=== PATIENT | female | born 1960 | race Two or more races ===

== ENCOUNTER 2018-01-19 10:11 | Emergency (ER) | payer OTHER ==
[~2018-01-19] VITALS: Ht 154.9 cm; Wt 75.3 kg
[2018-01-19 10:14] VITALS: BP 139/82
[2018-01-19] MEDS ORDERED: LIDOCAINE-MPF 1%, 5ML ONE (10:54)
[2018-01-19] MEDS ORDERED: ALBUTEROL/IPRATROPIUM 2.5MG/0.5MG, 3 ML ONE (10:55)
[2018-01-19] MEDS ORDERED: LIDOCAINE-MPF 1%, 5ML INFIL ONE (11:00)
[2018-01-19] MEDS ORDERED: ALBUTEROL/IPRATROPIUM 2.5MG/0.5MG, 3 ML NPPB ONE (11:00)
[2018-01-19] MEDS ORDERED: ALBUTEROL SULFATE 2.5 MG/3 ML NPPB PRN (11:30)
== END 2018-01-19 12:31 | disposition home or self-care (01) ==
LOC: ED 12:12
DX: L02.416 Cutaneous abscess of left lower limb (principal); J45.31 Mild persistent asthma with (acute) exacerbation
CPT/HCPCS: 10060; 93005; 94640; 99283; J7512; J7620

== ENCOUNTER 2018-01-21 07:12 | Emergency (ER) | payer OTHER ==
[~2018-01-21] VITALS: Ht 154.9 cm; Wt 77.5 kg
[2018-01-21 07:14] VITALS: BP 148/79
== END 2018-01-21 07:48 | disposition home or self-care (01) ==
LOC: ED 07:20
DX: L02.214 Cutaneous abscess of groin (principal); J45.909 Unspecified asthma, uncomplicated
CPT/HCPCS: 99281

== ENCOUNTER 2018-01-22 07:07 | Emergency (ER) | payer OTHER ==
[~2018-01-22] VITALS: Ht 154.9 cm; Wt 76.3 kg
[2018-01-22 09:01] VITALS: BP 141/87
== END 2018-01-22 09:03 | disposition home or self-care (01) ==
LOC: ED 08:46
DX: J06.9 Acute upper respiratory infection, unspecified (principal); J45.909 Unspecified asthma, uncomplicated
CPT/HCPCS: 71046; 99283